=== PATIENT | male | born 1980 | race Caucasian/White ===

== ENCOUNTER 2019-05-29 21:00 | Emergency (ER) | payer OTHER, SELFPAY ==
[2019-05-29] MEDS ORDERED: LIDOCAINE 1% 20 ML MDV ONE (21:40)
--- NOTE | 2019-05-29 21:59 | ER ---
Nurse's Notes [facility] Name: Salazar Ruffin Age: 39 yrs Sex: Male : 1980 Arrival Date: 05/29/2019 Time: 21:09 Bed 6 Private MD: Diagnosis: Cutaneous abscess of buttock Presentation: 05/29 21:14 Presenting complaint: Patient states: abscess to lower back since Thursday. pt denies ak1 drainage. Transition of care: patient was not received from another setting of care. Onset of symptoms is unknown. Risk Assessment: Do you want to hurt yourself or someone else? Patient reports no desire to harm self or others. Initial Sepsis Screen: Does the patient meet any 2 criteria? No. Patient's initial sepsis screen is negative. Does the patient have a suspected source of infection? No. Patient's initial sepsis screen is negative. Care prior to arrival: None. 21:14 Method Of Arrival: Ambulatory ak1 21:14 Acuity: WALTER 4 ak1 Triage Assessment: 21:16 General: Appears in no apparent distress. Behavior is calm, cooperative. ak1 Historical: - Allergies: 21:16 No Known Allergies; ak1 - Home Meds: 21:16 None [Active]; ak1 - PMHx: 21:16 None; ak1 - PSHx: 21:16 Appendectomy; ak1 - Immunization history:: Adult Immunizations unknown. - Social history:: Smoking status: Patient/guardian denies using tobacco. - Ebola Screening: : No symptoms or risks identified at this time. Screenin:36 Abuse screen: Denies threats or abuse. Nutritional screening: No deficits noted. ea Tuberculosis screening: No symptoms or risk factors identified. Fall Risk None identified. Assessment: 21:34 General: Appears in no apparent distress. Behavior is calm, cooperative, appropriate ea for age. Pain: Complains of pain in gluteal cleft. Neuro: Level of Consciousness is awake, alert, obeys commands, Oriented to person, place, time. Cardiovascular: Patient's skin is warm and dry. Respiratory: Airway is patent Respiratory effort is even, unlabored, Respiratory pattern is regular, symmetrical. Derm: Abscess located on gluteal cleft is half dollar sized, is red, is raised. 22:07 Reassessment: Patient and/or family updated on plan of care and expected duration. Pain ea level reassessed. Patient is alert, oriented x 3, equal unlabored respirations, skin warm/dry/pink. Discharge instruction given to patient, verbalized the understanding of instruction. Pt left ED ambulatory, tolerating well. Vital Signs: 21:13 BP 146 / 102; Pulse 102; Resp 18; Temp 97.9; Pulse Ox 97% on R/A; Weight 135.17 kg (R); ak1 Height 6 ft. 0 in. (182.88 cm) (R); Pain 7/10; 21:13 Body Mass Index 40.42 (135.17 kg, 182.88 cm) ak1 ED Course: 21:09 Patient arrived in ED. es 21:13 Benny Perez PA is PHCP. jr8 21:13 Alirio Benoit MD is Attending Physician. jr8 21:13 Arm band placed on Patient placed in an exam room, on a stretcher, on pulse oximetry, ak1 Patient notified of wait time. 21:15 Triage completed. ak1 21:24 Shruthi Boyer RN is Primary Nurse. ea 21:36 Patient has correct armband on for positive identification. Bed in low position. Call ea light in reach. Side rails up X2. 21:50 Assist provider with I \T\ D: of an abscess on Set up I\T\D tray. Performed by Benny BRANCH Wound packed. iodoform gauze, Dressing with 4X4s, Patient tolerated well. 21:58 Mathew Zhu MD is Referral Physician. jr8 22:12 Patient did not have IV access during this emergency room visit. ea Administered Medications: 21:44 Drug: Lidocaine (1 %) 5 mg {Note: adminsitered by physician.} Route: Infiltration; ea Outcome: 21:59 Discharge ordered by . jr8 22:13 Discharged to home ambulatory. ea 22:13 Condition: improved 22:13 Discharge instructions given to patient, Instructed on discharge instructions, follow up and referral plans. medication usage, Demonstrated understanding of instructions, follow-up care, medications, Prescriptions given X 1. 22:15 Patient left the ED. ea Signatures: Ana Ortiz Josh, PA PA jr8 Claudia Delvalle RN RN ak1 Boyer, Shruthi, RN RN ea
--- NOTE | 2019-05-29 22:00 | EDPHYS ---
Physician Documentation [facility] Name: Salazar Ruffin Age: 39 yrs Sex: Male : 1980 Arrival Date: 05/29/2019 Time: 21:09 Bed 6 Private MD: ED Physician Alirio Benoit HPI: 05/29 21:56 This 39 yrs old Male presents to ER via Ambulatory with complaints of Abscess.jr8 21:56 The patient presents with an abscess of the buttocks. Description: The affected area is jr8 moderate sized, well demarcated, erythematous, swollen, tense. Onset: The symptoms/episode began/occurred gradually, 2 day(s) ago. Possible cause(s): unknown. Associated signs and symptoms: The patient has no apparent associated signs or symptoms. Modifying factors: the symptoms are alleviated by nothing, the symptoms are aggravated by pressure, sitting, squeezing the lesion and expressing the contents, touching. Severity of symptoms: At their worst the symptoms were moderate, in the emergency department the symptoms are unchanged. The patient has not experienced similar symptoms in the past. The patient has not recently seen a physician. Historical: - Allergies: 21:16 No Known Allergies; ak1 - Home Meds: 21:16 None [Active]; ak1 - PMHx: 21:16 None; ak1 - PSHx: 21:16 Appendectomy; ak1 - Immunization history:: Adult Immunizations unknown. - Social history:: Smoking status: Patient/guardian denies using tobacco. - Ebola Screening: : No symptoms or risks identified at this time. ROS: 21:56 Eyes: Negative for injury, pain, redness, and discharge, ENT: Negative for injury, jr8 pain, and discharge, Neck: Negative for injury, pain, and swelling, Cardiovascular: Negative for chest pain, palpitations, and edema, Respiratory: Negative for shortness of breath, cough, wheezing, and pleuritic chest pain, Abdomen/GI: Negative for abdominal pain, nausea, vomiting, diarrhea, and constipation, Back: Negative for injury and pain, MS/Extremity: Negative for injury and deformity, Neuro: Negative for headache, weakness, numbness, tingling, and seizure. 21:56 Skin: Positive for abscess. Exam: 21:56 Eyes: Pupils equal round and reactive to light, extra-ocular motions intact. Lids and jr8 lashes normal. Conjunctiva and sclera are non-icteric and not injected. Cornea within normal limits. Periorbital areas with no swelling, redness, or edema. ENT: Nares patent. No nasal discharge, no septal abnormalities noted. Tympanic membranes are normal and external auditory canals are clear. Oropharynx with no redness, swelling, or masses, exudates, or evidence of obstruction, uvula midline. Mucous membranes moist. Neck: Trachea midline, no thyromegaly or masses palpated, and no cervical lymphadenopathy. Supple, full range of motion without nuchal rigidity, or vertebral point tenderness. No Meningismus. Cardiovascular: Regular rate and rhythm with a normal S1 and S2. No gallops, murmurs, or rubs. Normal PMI, no JVD. No pulse deficits. Respiratory: Lungs have equal breath sounds bilaterally, clear to auscultation and percussion. No rales, rhonchi or wheezes noted. No increased work of breathing, no retractions or nasal flaring. Abdomen/GI: Soft, non-tender, with normal bowel sounds. No distension or tympany. No guarding or rebound. No evidence of tenderness throughout. Back: No spinal tenderness. No costovertebral tenderness. Full range of motion. MS/ Extremity: Pulses equal, no cyanosis. Neurovascular intact. Full, normal range of motion. Neuro: Awake and alert, GCS 15, oriented to person, place, time, and situation. Cranial nerves II-XII grossly intact. Motor strength 5/5 in all extremities. Sensory grossly intact. Cerebellar exam normal. Normal gait. 21:56 Skin: abscess, that is moderate sized, approximately 3 cm(s), of the right luteal cleft, with fluctuance, with induration. Vital Signs: 21:13 BP 146 / 102; Pulse 102; Resp 18; Temp 97.9; Pulse Ox 97% on R/A; Weight 135.17 kg (R); ak1 Height 6 ft. 0 in. (182.88 cm) (R); Pain 7/10; 21:13 Body Mass Index 40.42 (135.17 kg, 182.88 cm) ak1 Procedures: 21:56 I \T\ D: Incision and drainage was performed for an abscess of the right pilonidal cyst jr8 Prepped with Betadine, Anesthetized with 10 ml's 1% Lidocaine. Incised with #11 blade. Drained moderate amount purulent fluid. serosanguinous fluid. bloody fluid. Loculations removed. Abscess cavity explored. Packed with iodoform gauze, Dressing: sterile 4x4 gauze, the patient tolerated the procedure well. MDM: 21:16 Patient medically screened. jr8 21:56 Data reviewed: vital signs, nurses notes, and as a result, I will discharge patient. jr8 Data interpreted: Pulse oximetry: on room air is 97 %. Interpretation: normal. Counseling: I had a detailed discussion with the patient and/or guardian regarding: the historical points, exam findings, and any diagnostic results supporting the discharge/admit diagnosis, the need for outpatient follow up, a general surgeon, to return to the emergency department if symptoms worsen or persist or if there are any questions or concerns that arise at home. 05/29 21:19 Order name: I\T\D Setup; Complete Time: 21:34 jr8 Administered Medications: 21:44 Drug: Lidocaine (1 %) 5 mg {Note: adminsitered by physician.} Route: Infiltration; ea Disposition: 05/30 06:32 Co-signature as Attending Physician, Alirio Benoit MD I agree with the assessment and tw4 plan of care. Disposition: 05/29/19 21:59 Discharged to Home. Impression: Cutaneous abscess of buttock. - Condition is Stable. - Discharge Instructions: Skin Abscess, Incision and Drainage. - Prescriptions for Bactrim DS 800- 160 mg Oral Tablet - take 1 tablet by ORAL route every 12 hours for 10 days; 20 tablet. - Medication Reconciliation Form, Thank You Letter, Antibiotic Education, Prescription Opioid Use form. - Follow up: Mathew Zhu MD; When: 48 Hours; Reason: Wound Recheck, Recheck today's complaints, Continuance of care, Re-evaluation by your physician. - Problem is new. - Symptoms have improved. Signatures: Benny Perez PA PA jr8 Claudia Delvalle RN RN ak1 Shruthi Boyer RN Alirio Philippe ea, MD MD tw4 Corrections: (The following items were deleted from the chart) 05/29 22:15 21:59 05/29/2019 21:59 Discharged to Home. Impression: Cutaneous abscess of buttock. ea Condition is Stable. Forms are Medication Reconciliation Form, Thank You Letter, Antibiotic Education, Prescription Opioid Use. Follow up: Mathew Zhu; When: 48 Hours; Reason: Wound Recheck, Recheck today's complaints, Continuance of care, Re-evaluation by your physician. Problem is new. Symptoms have improved. jr8
[2019-05-29 23:19] VITALS: BP 146/102; TEMP 97.9; O2SAT 97
== END 2019-05-29 22:15 | disposition home or self-care (01) ==
LOC: ER 21:00
PROC: 0H98XZZ Drainage of Buttock Skin, External Approach (ICD-10-PCS; principal; 2019-05-29)
DX: L05.91 Pilonidal cyst without abscess (principal)
CPT/HCPCS: 99284